=== PATIENT | female | born 1935 | race Two or more races ===

== ENCOUNTER 2019-03-06 10:00 | Inpatient (IN) | payer OTHER ==
[~2019-03-06] VITALS: Ht 152.4 cm; Wt 63.5 kg
[~2019-03-06 10:00] MED LIST: BAYER CHEWABLE81 MG; CALAN SR120 MG; CALTRATE 600 W-1 TAB; CARDURA1 MG PO; DIOVAN HCT 320/1 TAB; GAS RELIEF40 MG/0.6 PO; LEVOTHYROXINE50 MCG; LIPITOR20 MG; LOPRESSOR25 MG PO; MECLIZINE HCL25 MG; METFORMIN HCL500 MG; ZYRTEC10 M3
[2019-03-06] MEDS ORDERED: AVAPRO150 MG PO (13:57)
[2019-03-06] MEDS ORDERED: MICROZIDE12.5 MG PO (13:58)
[2019-03-06] MEDS ORDERED: CALTRATE 600 +1 EACH PO (13:59)
[2019-03-06] MEDS ORDERED: OMEGA-31000 MG PO (13:59)
[2019-03-13] MEDS ORDERED: INTESTINEX680 M1 PO (09:12)
[2019-03-13] MEDS ORDERED: AMOX1TAB5 PO (09:12)
[2019-03-13] MEDS ORDERED: OXYC1TAB9 PO (09:12)
[2019-03-13] MEDS ORDERED: DEXILANT60 MG PO (09:13)
== END 2019-03-13 10:49 | disposition home or self-care (01) | DRG 349 ==
LOC: ADM 10:00 → EDSTATUS 10:00 → O/R 03-11 05:00 → SURH 03-11 05:00
PROVIDERS: ADMIT Surgery
PROC: 0KXM0ZZ Transfer Perineum Muscle, Open Approach (ICD-10-PCS; 2019-03-11)
PROC: 0DJD8ZZ Inspection of Lower Intestinal Tract, Via Natural or Artificial Opening Endoscopic (ICD-10-PCS; 2019-03-11)
PROC: 0DBP7ZZ Excision of Rectum, Via Natural or Artificial Opening (ICD-10-PCS; principal; 2019-03-11 10:45)
DX: K62.3 Rectal prolapse (principal); K64.3 Fourth degree hemorrhoids; K63.89 Other specified diseases of intestine; K62.2 Anal prolapse; R15.9 Full incontinence of feces; I11.9 Hypertensive heart disease without heart failure; E03.8 Other specified hypothyroidism; E11.9 Type 2 diabetes mellitus without complications; Z79.4 Long term (current) use of insulin